=== PATIENT | male | born 1960 | race Caucasian/White ===

== ENCOUNTER 2021-06-09 08:06 | Outpatient (CLI) | payer OTHER | END 2021-06-09 08:07 | disposition home or self-care (01) | LOC: BICRAD 08:06 | PROVIDERS: ATTEND Chiropractor | DX: M54.2 Cervicalgia (principal); M53.82 Other specified dorsopathies, cervical region; M79.10 Myalgia, unspecified site; M47.812 Spondylosis without myelopathy or radiculopathy, cervical region | CPT/HCPCS: 72050 ==